=== PATIENT | male | born 1990 | race Caucasian/White ===

== ENCOUNTER 2020-02-18 09:00 | Emergency (ER) | payer OTHER ==
[~2020-02-18] VITALS: Ht 180.3 cm; Wt 94.0 kg
[~2020-02-18 09:00] MED LIST: NO HOME MEDICATIONS
[2020-02-18 09:10] VITALS: BP 134/91
[2020-02-18] MEDS ORDERED: TETanus/Pertussis (Acell)/Diphther VAC/PF (Tdap-Adult) 0.5ml syringe IMVAC ONE (10:35)
== END 2020-02-18 11:01 | disposition home or self-care (01) ==
LOC: ER 09:00
DX: T23.101A Burn of first degree of right hand, unspecified site, initial encounter (principal); T23.131A Burn of first degree of multiple right fingers (nail), not including thumb, initial encounter; F17.200 Nicotine dependence, unspecified, uncomplicated; W40.1XXA Explosion of explosive gases, initial encounter; Y93.G3 Activity, cooking and baking; Y92.000 Kitchen of unspecified non-institutional (private) residence as the place of occurrence of the external cause; Y99.8 Other external cause status
CPT/HCPCS: 16000; 90471; 99282; 99283